=== PATIENT | female | born 1975 | race Caucasian/White ===

== ENCOUNTER 2016-12-09 17:23 | Emergency (ER) | payer OTHER ==
[2016-12-09] MEDS ORDERED: ONDANSETRON 4 MG/2 ML VIAL IVP ONE (17:43)
[2016-12-09] MEDS ORDERED: NS 1,000 ML IV ONE ×2 (17:44→18:54)
[2016-12-09] MEDS ORDERED: HYOSCYAMINE SULFATE 0.125 MG TAB PO ONE (18:20)
[2016-12-09 18:34] VITALS: O2SAT 96
[2016-12-09 18:34] LABS: COLOR YELLOW; LEUKOCYTE ESTERASE,URINE TRACE (NEGATIVE); NITRITE,URINE NEGATIVE (NEGATIVE)
[2016-12-09 18:51] LABS: RBC,URINE 0-1 /hpf (0-3); WBC,URINE 15-25 /hpf (0-3)
[2016-12-09 18:53] LABS: ANION GAP 18 mEq/L (8-16); CALCIUM 9.5 mg/dL (8.5-10.4); CARBON DIOXIDE 21 mEq/l (22-31); CHLORIDE 101 mEq/L (97-110); CREATININE 0.8 mg/dL (0.6-1.0); GLOMERULAR FILTRATION RATE > 60; GLUCOSE 109 mg/dL (70-100); POTASSIUM 4.2 mEq/L (3.5-5.2); SODIUM 140 mEq/L (134-144)
[2016-12-09 18:53] LABS: BACTERIA 3+ /hpf (NONE SEEN); MUCUS 2+ /lpf (NONE-1+)
[2016-12-09 19:09] LABS: % IMMATURE GRANULYOCYTES 0.5 % (0.0-1.1); ABSOLUTE IMMATURE GRANULOCYTES 0.09 10^3/uL (0.00-0.10); ADD DIFF? NO; ADD MORPH? NO; ADD SCAN? NO; ATYPICAL LYMPHOCYTE FLAG 0 (0-99); FRAGMENT RBC FLAG 0 (0-99); HEMATOCRIT 42.8 % (38.0-47.0); HEMOGLOBIN 14.2 g/dL (12.6-16.3); LEFT SHIFT FLG 0 (0-99); LIPEMIA HEMOLYSIS FLAG 80 (0-99); MEAN CELL HEMOGLOBIN 31.1 pg (27.9-34.1); MEAN CELL HEMOGLOBIN CONCENTR. 33.2 g/dL (32.4-36.7); MEAN CELL VOLUME 93.7 fL (81.5-99.8); MEAN PLATELET VOLUME 11.8 fL (8.7-11.7); PLATELET CLUMPS FLAG 0 (0-99); PLATELET COUNT 344 10^3/uL (150-400); RED BLOOD CELL COUNT 4.57 10^6/uL (4.18-5.33); RED CELL DISTRIBUTION WIDTH 13.7 % (11.5-15.2)
[2016-12-09] MEDS ORDERED: KETOROLAC 15 MG/1 ML SDV IVP ONE (19:21)
[2016-12-09] MEDS ORDERED: METOCLOPRAMIDE 10 MG/2 ML VIAL IVP ONE (19:26)
--- NOTE | 2016-12-09 20:09 | EDPHY ---
H & P Stated Complaint: abdominal/back pain n/v/d starting at 0200 today getting worse Time Seen by Provider: 12/09/16 17:50 HPI/ROS: This patient describes onset at 2:00 a.m. of lower belly pain that is worse in the midline is slightly throbbing in nature and radiates to bilateral lower quadrants. She also reports low back pain left more than right 8/10 intensity achy in nature. She reports difficulty sleeping due to the symptoms. She has noticed urinary symptoms but reports minimal urinary output. She did have onset of vomiting x2 this evening with ongoing nausea. She also reports slightly loose stools x3 episodes. While standing she she feels somewhat lightheaded. She tolerated chicken soup mid day today but had nothing else to eat or drink. She states her lower belly discomfort at this point is moderate. The pain in her belly do not worsen with bumps in the road on the way here. ROS: No high fevers or chills. She does have some fatigue. HEENT: No URI symptoms or other complaints Pulmonary: No cough shortness of breath Cardiovascular: No chest pain or heart palpitations. No lower extremity swelling. No syncope though she does have lightheadedness while standing. GI: No hematemesis or coffee-ground emesis. Her stool is brown in color. : No vaginal discharge. Last menstrual period was normal timing -just completed. Integumentary: No skin rash 10 point ROS is otherwise negative Source: Patient, Family (Her also provides history.) Exam Limitations: No limitations - Personal History Current Tetanus/Diphtheria Vaccine: Yes Current Tetanus Diphtheria and Acellular Pertussis (TDAP): Yes Tetanus Vaccine Date: < 10 years - Medical/Surgical History PMH: , vaginal delivery Hx Asthma: Yes Hx Chronic Respiratory Disease: No Hx Diabetes: No Hx Cardiac Disease: No Hx Renal Disease: No Hx Cirrhosis: No Hx Alcoholism: No Hx HIV/AIDS: No Hx Splenectomy or Spleen Trauma: No Other PMH: none reported - Family History Significant Family History: No pertinent family hx - Social History Smoking Status: Never smoked Alcohol Use: Rarely Drug Use: None Additional Social History: she has a 4-year-old boy. she is accompanied by her who works at [employer] no recent foreign travel. No suspect food. No also family sick at this time. - Physical Exam Exam: Her pulse is 100 and she has mild hypertension 139/93. Otherwise vital signs are normal. General Appearance: Alert, no distress. Eyes: Pupils equal and round no pallor or injection. ENT, Mouth: Mucous membranes Dry. Respiratory: There are no retractions, lungs are clear to auscultation. Cardiovascular: Borderline tachycardia with no murmur gallop rub. Gastrointestinal: hyperactive bowel sounds with suprapubic tenderness. No guarding or rebound. No upper belly tenderness. No organomegaly. Back: Mild left CVA tenderness Neurological: GCS of 15 with no focal sensory or motor deficits. Skin: Warm and dry, no rashes. Musculoskeletal: Neck is supple nontender. Extremities are symmetrical, full range of motion. Psychiatric: Mood and affect are normal. DIFFERENTIAL DIAGNOSIS: After history and physical exam differential diagnosis was considered for Viral gastroenteritis, UTI/pyelonephritis, diverticulitis, dehydration Constitutional: Initial Vital Signs Temperature (C) 37.0 C 12/09/16 17:39 Heart Rate 100 12/09/16 17:39 Respiratory Rate 20 12/09/16 17:39 Blood Pressure 139/93 H 12/09/16 17:39 O2 Sat (%) 100 12/09/16 17:39 O2 Delivery Mode Room Air Allergies/Adverse Reactions: No Known Allergies Allergy (Verified 12/09/16 17:44) Home Medications: Medication Instructions Recorded Zoloft 50mg (RX) 08/18/15 Cephalexin [Keflex (*)] 500 mg PO TID #30 cap 12/09/16 Ondansetron Odt [Zofran Odt] 4 - 8 mg PO Q4PRN PRN #4 tab 12/09/16 Medical Decision Making ED Course/Re-evaluation: IV normal saline bolus, Zofran and Levsin without much change. She had persistent nausea and crampy pain. IV Toradol 2nd L of NS, Reglan and Benadryl finally with relief. On recheck at 8:20 p.m. the patient was napping part way through 3rd L with resolution of her nausea reduction or back pain and resolution of her belly discomfort. Review of her labs reveals significant leukocytosis to 19,000. Urinalysis is positive. IV Rocephin 1 g Patient had resolution of her borderline tachycardia. She is tolerating good p. o. intake and feels improved discussion: Patient with initial findings consistent with sepsis with a pulse of 100 and significant leukocytosis but without severe sepsis or septic shock. She responded well to fluids and feels well time of discharge. I think that she is safe for discharge home. Patient wishes to proceed home and I counseled her regarding pyelonephritis. - Data Points Laboratory Results: Laboratory Results 12/09/16 17:42 12/09/16 17:42 12/09/16 12/09/16 12/09/16 18:30 17:42 17:42 WBC 19.31 10^3/uL H 10^3/uL (3.80-9.50) RBC 4.57 10^6/uL 10^6/uL (4.18-5.33) Hgb 14.2 g/dL g/dL (12.6-16.3) Hct 42.8 % % (38.0-47.0) MCV 93.7 fL fL (81.5-99.8) MCH 31.1 pg pg (27.9-34.1) MCHC 33.2 g/dL g/dL (32.4-36.7) RDW 13.7 % % (11.5-15.2) Plt Count 344 10^3/uL 10^3/uL (150-400) MPV 11.8 fL H fL (8.7-11.7) Neut % (Auto) 83.9 % H % (39.3-74.2) Lymph % (Auto) 10.9 % L % (15.0-45.0) [place] % (Auto) 4.1 % L % (4.5-13.0) Eos % (Auto) 0.4 % L % (0.6-7.6) Baso % (Auto) 0.2 % L % (0.3-1.7) Nucleat RBC Rel Count 0.0 % % (0.0-0.2) Absolute Neuts (auto) 16.22 10^3/uL H 10^3/uL (1.70-6.50) Absolute Lymphs (auto) 2.10 10^3/uL 10^3/uL (1.00-3.00) Absolute Monos (auto) 0.79 10^3/uL 10^3/uL (0.30-0.80) Absolute Eos (auto) 0.07 10^3/uL 10^3/uL (0.03-0.40) Absolute Basos (auto) 0.04 10^3/uL 10^3/uL (0.02-0.10) Absolute Nucleated RBC 0.00 10^3/uL 10^3/uL (0-0.01) Immature Gran % 0.5 % % (0.0-1.1) Immature Gran # 0.09 10^3/uL 10^3/uL (0.00-0.10) Sodium Potassium Chloride Carbon Dioxide Anion Gap BUN Creatinine Estimated GFR Glucose Calcium Beta HCG, Qual NEGATIVE Urine Color YELLOW Urine Appearance HAZY Urine pH 6.0 (5.0-7.5) Ur Specific [place] 1.025 (1.002-1.030) Urine Protein TRACE H (NEGATIVE) Urine Ketones 3+ H (NEGATIVE) Urine Blood TRACE H (NEGATIVE) Urine Nitrate NEGATIVE (NEGATIVE) Urine Bilirubin NEGATIVE (NEGATIVE) Urine Urobilinogen 0.2 EU EU (0.2-1.0) Ur Leukocyte Esterase TRACE H (NEGATIVE) Urine RBC 0-1 /hpf /hpf (0-3) Urine WBC 15-25 /hpf H /hpf (0-3) Ur Epithelial Cells 2+ /lpf H /lpf (NONE-1+) Urine Bacteria 3+ /hpf H /hpf (NONE SEEN) Urine Mucus 2+ /lpf H /lpf (NONE-1+) Urine Glucose NEGATIVE (NEGATIVE) 12/09/16 17:42 WBC RBC Hgb Hct MCV MCH MCHC RDW Plt Count MPV Neut % (Auto) Lymph % (Auto) [place] % (Auto) Eos % (Auto) Baso % (Auto) Nucleat RBC Rel Count Absolute Neuts (auto) Absolute Lymphs (auto) Absolute Monos (auto) Absolute Eos (auto) Absolute Basos (auto) Absolute Nucleated RBC Immature Gran % Immature Gran # Sodium 140 mEq/L mEq/L (134-144) Potassium 4.2 mEq/L mEq/L (3.5-5.2) Chloride 101 mEq/L mEq/L (97-110) Carbon Dioxide 21 mEq/l L mEq/l (22-31) Anion Gap 18 mEq/L H mEq/L (8-16) BUN 13 mg/dL mg/dL (7-23) Creatinine 0.8 mg/dL mg/dL (0.6-1.0) Estimated GFR > 60 Glucose 109 mg/dL H mg/dL (70-100) Calcium 9.5 mg/dL mg/dL (8.5-10.4) Beta HCG, Qual Urine Color Urine Appearance Urine pH Ur Specific [place] Urine Protein Urine Ketones Urine Blood Urine Nitrate Urine Bilirubin Urine Urobilinogen Ur Leukocyte Esterase Urine RBC Urine WBC Ur Epithelial Cells Urine Bacteria Urine Mucus Urine Glucose Medications Given: Discontinued Medications Diphenhydramine HCl (Benadryl Injection) 25 mg IVP EDNOW ONE Stop: 12/09/16 19:28 Last Admin: 12/09/16 19:35 Dose: 25 mg Hyoscyamine Sulfate (Levsin, Hyomax-Sl) 0.125 mg PO EDNOW ONE Stop: 12/09/16 18:21 Last Admin: 12/09/16 18:31 Dose: 0.125 mg Sodium Chloride (Ns) 1,000 mls @ 0 mls/hr IV ONCE ONE PRN Reason: Wide Open Stop: 12/09/16 17:45 Last Admin: 12/09/16 17:49 Dose: 1,000 mls Ceftriaxone Sodium 1 gm/ (Sodium Chloride) 100 mls @ 200 mls/hr IV EDNOW ONE PRN Reason: Protocol Stop: 12/09/16 19:24 Last Admin: 12/09/16 19:11 Dose: 100 mls Sodium Chloride (Ns) 1,000 mls @ 0 mls/hr IV ONCE ONE; Wide Open PRN Reason: Protocol Stop: 12/09/16 18:55 Last Admin: 12/09/16 18:57 Dose: 1,000 mls Ketorolac Tromethamine (Toradol) 15 mg IVP EDNOW ONE Stop: 12/09/16 19:22 Last Admin: 12/09/16 19:28 Dose: 15 mg Metoclopramide HCl (Reglan Injection) 5 mg IVP EDNOW ONE Stop: 12/09/16 19:27 Last Admin: 12/09/16 19:35 Dose: 5 mg Ondansetron HCl (Zofran) 4 mg IVP EDNOW ONE Stop: 12/09/16 17:44 Last Admin: 12/09/16 17:49 Dose: 4 mg Ondansetron HCl (Zofran Odt 4 Mg Prepack#2) 1 btl JULES BENJAMINW ONE Stop: 12/09/16 20:50 Last Admin: 12/09/16 20:57 Dose: 1 btl Departure - Departure Disposition: Home, Routine, Self-Care Clinical Impression: Pyelonephritis, Dehydration Vomiting Qualifiers: Vomiting type: unspecified Vomiting Intractability: non-intractable Nausea presence: with nausea Qualified Code(s): R11.2 - Nausea with vomiting, unspecified Condition: Good Instructions: Ondansetron (By mouth), Urinary Tract Infection in Women (ED), Acute Nausea and Vomiting (ED) Additional Instructions: Diagnoses: 1. Pyelonephritis 2. Vomiting Plan: Drink plenty fluids Light diet until he feel improved Zofran nausea medicine as needed Keflex antibiotic - 1st dose tomorrow after breakfast Ibuprofen Tylenol for pain as needed. Return for any significant worsening despite the treatment plan. Referrals: Irlanda Vazquez MD [Primary Care Provider] - As per Instructions Prescriptions: Cephalexin [Keflex (*)] 500 mg PO TID #30 cap Ondansetron Odt [Zofran Odt] 4 - 8 mg PO Q4PRN PRN #4 tab PRN Reason: Vomiting
[2016-12-09] MEDS ORDERED: ONDANSETRON 4MG PREPACK#2 BTL TAKEHOME ONE (20:49)
[2016-12-09 20:59] VITALS: BP 111/63; PULSE 71; RESP 16; TEMP 99
== END 2016-12-09 20:58 | disposition home or self-care (01) ==
LOC: CED 17:23
DX: N12 Tubulo-interstitial nephritis, not specified as acute or chronic (principal); E86.0 Dehydration; J45.909 Unspecified asthma, uncomplicated; B96.89 Other specified bacterial agents as the cause of diseases classified elsewhere
CPT/HCPCS: 80048-PO; 81003-PO; 81015-PO; 84703-PO; 85025-PO; 96365; J0696; J1200; J1885; J2405; J2765

== ENCOUNTER → 2017-12-10 | Outpatient (CLI) | payer OTHER | LOC: FIMAGING 11:45 | PROVIDERS: ATTEND Family Medicine | DX: Z12.31 Encounter for screening mammogram for malignant neoplasm of breast (principal) ==

== ENCOUNTER → 2017-12-17 | Outpatient (CLI) | payer OTHER | LOC: FIMAGING 13:08 | PROVIDERS: ATTEND Family Medicine | DX: N60.02 Solitary cyst of left breast (principal); E55.9 Vitamin D deficiency, unspecified ==